=== PATIENT | female | born 1990 | race Caucasian/White ===

== ENCOUNTER 2016-07-10 12:36 | Emergency (ER) | payer SELFPAY ==
[~2016-07-10] VITALS: Ht 180.3 cm; Wt 134.4 kg
[2016-07-10 12:44] VITALS: BP 125/81
== END 2016-07-10 14:18 | disposition home or self-care (01) ==
LOC: ED 14:12
DX: S43.421A Sprain of right rotator cuff capsule, initial encounter (principal); X58.XXXA Exposure to other specified factors, initial encounter; Y93.89 Activity, other specified; Y92.89 Other specified places as the place of occurrence of the external cause; Y99.8 Other external cause status
CPT/HCPCS: 99284

== ENCOUNTER 2016-08-29 14:01 | Emergency (ER) | payer OTHER ==
[~2016-08-29] VITALS: Ht 177.8 cm; Wt 130.0 kg
[2016-08-29 14:05] VITALS: BP 138/88
[2016-08-29] MEDS ORDERED: FLUORESCEIN OPHTHALMIC 1 MG STRIP RIGHTEYE ONE (14:30)
[2016-08-29] MEDS ORDERED: PROPARACAINE OPHTH 0.5%, 15ML RIGHTEYE ONE (14:30)
[2016-08-29] MEDS ORDERED: FLUORESCEIN OPHTHALMIC 1 MG STRIP ONE (14:36)
[2016-08-29] MEDS ORDERED: PROPARACAINE OPHTH 0.5%, 15ML ONE (14:37)
== END 2016-08-29 16:18 | disposition home or self-care (01) ==
LOC: ED 14:38
DX: Z77.098 Contact with and (suspected) exposure to other hazardous, chiefly nonmedicinal, chemicals (principal); T54.2X1A Toxic effect of corrosive acids and acid-like substances, accidental (unintentional), initial encounter; T26.61XA Corrosion of cornea and conjunctival sac, right eye, initial encounter; Y93.89 Activity, other specified; Y99.8 Other external cause status; Y92.89 Other specified places as the place of occurrence of the external cause
CPT/HCPCS: 99283